=== PATIENT | male | born 1955 | race Caucasian/White ===

== ENCOUNTER 2022-04-08 14:24 | Observation (INO) | payer MEDICARE ==
[2022-04-08] MEDS ORDERED: Fentanyl 100 MCG/2 ML VIAL ONE ×3 (14:34→21:13)
[2022-04-08] MEDS ORDERED: metroNIDAZOLE 250 MG TAB ONE (14:35)
[2022-04-08] MEDS ORDERED: NOREPINEPHRINE 8 MG/250 ML-D5W 250 ML ONE (14:39)
[2022-04-08 14:40] LABS: #Lymphocytes 1.6 thou/uL (1.20-3.40); #Monocytes 0.7 thou/uL (0.11-0.59); #Neutrophils 3.5 thou/uL (1.40-6.50); %Eosinophils 0.4 % (0.0-10.0); %Lymphocytes 27.3 % (21.0-51.0); %Monocytes 12.4 % (0.0-10.0); %Neutrophils 59.9 % (42.0-75.0); Hemoglobin 12.6 g/dL (14.0-18.0); Mean Corpuscular HGB CONC 33.9 g/dL (32.0-36.0); Mean Corpuscular Hemoglobin 33.9 pg (27.0-31.0); Mean Platelet Volume 7.8 fL (7.4-10.4); Platelet Count 217 thou/uL (130-400); RBC Distribution Width 12.5 % (11.5-14.5); White Blood Cell (WBC) Count 5.9 thou/uL (4.8-10.8)
[2022-04-08 14:55] LABS: ALT (SGPT) 8 U/L (8-55); AST (SGOT) 17 U/L (5-34); Albumin 3.4 g/dL (3.4-4.8); Alkaline Phosphatase 53 U/L (40-110); Anion Gap 9 mmol/L (10-20); BUN (Urea Nitrogen) 20 mg/dL (8.4-25.7); Bilirubin, Total 0.4 mg/dL (0.2-1.2); Calc. Creatinine Clearance 0 mL/min (70-130); Calcium 8.5 mg/dL (7.8-10.44); Carbon Dioxide 21 mmol/L (23-31); Chloride 105 mmol/L (98-107); Estimated GFR 95; Globulin 2.4 g/dL (2.4-3.5); Glucose 125 mg/dL (80-115); Protein, Total 5.8 g/dL (5.8-8.1); Sodium 132 mmol/L (136-145)
[2022-04-08 15:00] LABS: Potassium 2.9 mmol/L (3.5-5.1)
[2022-04-08 15:06] LABS: INR-International Normal Ratio 1.2; Prothrombin Time 15.2 sec (12.0-14.7)
[2022-04-08 15:23] LABS: PTT 32.7 sec (22.9-36.1)
[2022-04-08] MEDS ORDERED: methylPREDNISolone Sod Succ/PF 125 MG/2 ML VIAL ONE (19:22)
[2022-04-08] MEDS ORDERED: Potassium Chloride 20 MEQ TAB ONE (19:22)
[2022-04-08] MEDS ORDERED: Ondansetron PF 4 MG/2 ML Vial IVP PRN (19:45)
[2022-04-08] MEDS ORDERED: Acetaminophen 325 MG TAB PO PRN (19:45)
[2022-04-08] MEDS ORDERED: Magnesium 2 GM/50 ML BAG (IN WATER) ONE (19:55)
[2022-04-08] MEDS ORDERED: Pregabalin 75 MG CAP PO SCH (21:00)
[2022-04-08] MEDS: guaiFENesin ER 600 MG TAB PO SCH (21:32)
[2022-04-08] MEDS: HYDROcodone/Acetaminophen 5/325 mg Tablet PO PRN (23:25)
[2022-04-08 23:35] VITALS: TEMP 97.9
[2022-04-09] MEDS ORDERED: Pregabalin 75 MG CAP PO SCH (00:15)
[2022-04-09 01:27] LABS: SARS-CoV-2 NAA Rapid Test Not Detected (NotDetected)
[2022-04-09] MEDS ORDERED: HYDROcodone/Acetaminophen 5/325 mg Tablet ONE ×2 (03:36→10:30)
[2022-04-09] MEDS: HYDROcodone/Acetaminophen 5/325 mg Tablet PO PRN ×2 (03:53→10:30)
[2022-04-09] MEDS ORDERED: methylPREDNISolone Sod Succ/PF 125 MG/2 ML VIAL ONE (04:40)
[2022-04-09] MEDS ORDERED: methylPREDNISolone Sod Succ 40 MG VIAL ONE (04:42)
[2022-04-09] MEDS ORDERED: methylPREDNISolone Sod Succ 40 MG VIAL IVP SCH (05:00)
[2022-04-09] MEDS ORDERED: Acetylcysteine 20% 200 MG/ML 30 ML VIAL INH SCH ×2 (05:15→15:00)
[2022-04-09 06:21] LABS: #Lymphocytes 0.4 thou/uL (1.20-3.40); #Monocytes 0.1 thou/uL (0.11-0.59); #Neutrophils 2.5 thou/uL (1.40-6.50); %Eosinophils 0.5 % (0.0-10.0); %Lymphocytes 13.7 % (21.0-51.0); %Monocytes 2.4 % (0.0-10.0); %Neutrophils 83.3 % (42.0-75.0); Hemoglobin 13.2 g/dL (14.0-18.0); Mean Corpuscular HGB CONC 33.1 g/dL (32.0-36.0); Mean Corpuscular Hemoglobin 33.3 pg (27.0-31.0); Mean Platelet Volume 7.8 fL (7.4-10.4); Platelet Count 199 thou/uL (130-400); RBC Distribution Width 12.5 % (11.5-14.5); Red Blood Cell (RBC) Count 3.98 mill/uL (4.70-6.10)
[2022-04-09] MEDS ORDERED: Budesonide 0.5 MG/2 ML NEB NEB SCH ×2 (06:30→18:30)
[2022-04-09 06:45] LABS: Chloride 105 mmol/L (98-107); Potassium 3.6 mmol/L (3.5-5.1); Sodium 132 mmol/L (136-145)
[2022-04-09 06:46] LABS: Glucose 194 mg/dL (80-115)
[2022-04-09 06:47] LABS: Carbon Dioxide 17 mmol/L (23-31)
[2022-04-09 06:49] LABS: Calc. Creatinine Clearance 0 mL/min (70-130); Estimated GFR 98
[2022-04-09 06:50] LABS: BUN (Urea Nitrogen) 13 mg/dL (8.4-25.7)
[2022-04-09 06:59] LABS: Anion Gap 14 mmol/L (10-20)
[2022-04-09] MEDS ORDERED: Rivaroxaban 10 MG TAB PO SCH (09:00)
[2022-04-09] MEDS: guaiFENesin ER 600 MG TAB PO SCH (09:48)
[2022-04-12 10:57] VITALS: BP 116/63
== END 2022-04-09 15:23 | disposition home or self-care (01) ==
LOC: ERS 14:24 → ERHOLD 19:45
PROVIDERS: ADMIT Internal Medicine; ATTEND Internal Medicine
DX: S22.42XA Multiple fractures of ribs, left side, initial encounter for closed fracture (principal); E78.5 Hyperlipidemia, unspecified; J45.20 Mild intermittent asthma, uncomplicated; E87.6 Hypokalemia; I77.9 Disorder of arteries and arterioles, unspecified; I95.9 Hypotension, unspecified; Z85.46 Personal history of malignant neoplasm of prostate; Z86.16 Personal history of COVID-19; Z86.718 Personal history of other venous thrombosis and embolism; Z79.01 Long term (current) use of anticoagulants; Z79.82 Long term (current) use of aspirin; Z79.899 Other long term (current) drug therapy; Z88.8 Allergy status to other drugs, medicaments and biological substances; Z89.511 Acquired absence of right leg below knee; Z95.820 Peripheral vascular angioplasty status with implants and grafts; Z20.822 Contact with and (suspected) exposure to COVID-19; V43.52XA Car driver injured in collision with other type car in traffic accident, initial encounter
CPT/HCPCS: 70450; 71045; 71275; 72125; 72191; 74174; 80048; 80053; 83605; 83735; 83880; 84484; 85025 ×2; 85610; 85730; 86850; 86900; 86901; 93005; 94640 ×3; 94760; 96365; 96375; 96376; 99285; U0002; 36415; 71260; 74177; G0390; J0132; J2920; J2930; J3010; J3475; J7620; J7626

== ENCOUNTER 2025-01-14 16:43 | Inpatient (IN) | payer MEDICARE ==
[2025-01-14] MEDS ORDERED: Ondansetron PF 4 MG/2 ML Vial ONE (17:14)
[2025-01-14 17:49] LABS: #Basophils Less than 0.03 10x3/uL (0.0-0.2); #Eosinophils Less than 0.03 10x3/uL (0.0-0.7); #Monocytes 1.09 10x3/uL (0.11-0.59); #Neutrophils 5.09 10x3/uL (1.40-6.50); %Basophils 0.3 % (0.0-1.0); %Eosinophils 0.0 % (0.0-10.0); %Lymphocytes 18.2 % (21.0-51.0); %Monocytes 14.2 % (0.0-10.0); %Neutrophils 66.5 % (42.0-75.0); Hematocrit 36.7 % (42.0-52.0); Hemoglobin 12.2 g/dL (14.0-18.0); Mean Corpuscular Hemoglobin 29.5 pg (27.0-31.0); Mean Corpuscular Volume 88.9 fL (78.0-98.0); Platelet Count 213 10x3/uL (130-400); Red Blood Cell (RBC) Count 4.13 mill/uL (4.70-6.10); White Blood Cell (WBC) Count 7.65 10x3/uL (4.8-10.8)
[2025-01-14 17:59] LABS: INR-International Normal Ratio 1.5; PTT 33.3 sec (22.9-36.1); Prothrombin Time 18.2 sec (12.0-14.7)
[2025-01-14 18:02] LABS: ALT (SGPT) 12 U/L (Less than 45); AST (SGOT) 21 U/L (11-34); Albumin 3.1 g/dL (3.1-4.5); Alkaline Phosphatase 75 U/L (40-110); Anion Gap 13 mmol/L (10-20); BUN (Urea Nitrogen) 23 mg/dL (8.4-25.7); Bilirubin, Total 0.8 mg/dL (0.3-1.2); Calc. Creatinine Clearance 0 mL/min (70-130); Calcium 8.1 mg/dL (7.8-10.44); Carbon Dioxide 19 mmol/L (23-31); Chloride 106 mmol/L (98-107); Globulin 2.8 g/dL (2.4-3.5); Glucose 88 mg/dL (83-110); Potassium 3.7 mmol/L (3.5-5.1); Sodium 134 mmol/L (136-145)
[2025-01-14] MEDS ORDERED: Acetaminophen 500 MG TAB ONE (19:43)
[2025-01-14] MEDS ORDERED: Glucagon 1 MG/ML KIT IM PRN (19:52)
[2025-01-14] MEDS ORDERED: Ondansetron PF 4 MG/2 ML Vial IVP PRN (19:52)
[2025-01-14] MEDS ORDERED: Dextrose 50% Abboject 50 ML SYRINGE SLOW IVP PRN (19:52)
[2025-01-15 00:07] VITALS: BMI 27.3
[2025-01-15 05:44] LABS: #Basophils Less than 0.03 10x3/uL (0.0-0.2); #Eosinophils Less than 0.03 10x3/uL (0.0-0.7); #Monocytes 1.09 10x3/uL (0.11-0.59); #Neutrophils 3.77 10x3/uL (1.40-6.50); %Basophils 0.3 % (0.0-1.0); %Eosinophils 0.0 % (0.0-10.0); %Lymphocytes 17.3 % (21.0-51.0); %Monocytes 18.4 % (0.0-10.0); %Neutrophils 63.5 % (42.0-75.0); Hematocrit 34.6 % (42.0-52.0); Hemoglobin 11.1 g/dL (14.0-18.0); Mean Corpuscular Hemoglobin 29.5 pg (27.0-31.0); Mean Corpuscular Volume 92.0 fL (78.0-98.0); Platelet Count 196 10x3/uL (130-400); Red Blood Cell (RBC) Count 3.76 mill/uL (4.70-6.10); White Blood Cell (WBC) Count 5.94 10x3/uL (4.8-10.8)
[2025-01-15 05:59] LABS: Anion Gap 11 mmol/L (10-20); BUN (Urea Nitrogen) 18 mg/dL (8.4-25.7); Calc. Creatinine Clearance 89 mL/min (70-130); Calcium 7.9 mg/dL (7.8-10.44); Carbon Dioxide 23 mmol/L (23-31); Chloride 102 mmol/L (98-107); Glucose 90 mg/dL (83-110); Potassium 3.9 mmol/L (3.5-5.1); Sodium 132 mmol/L (136-145)
[2025-01-15] MEDS: Pregabalin 50 MG CAP PO SCH (14:12)
[2025-01-15] MEDS ORDERED: CEFAZOLIN 2 GM VIAL ONE (14:23)
[2025-01-15] MEDS ORDERED: Ondansetron PF 4 MG/2 ML Vial ONE (15:32)
[2025-01-15] MEDS ORDERED: PROPOFOL 40 ML ONE (15:32)
[2025-01-15] MEDS ORDERED: fentaNYL PF 100 MCG/2 ML SYRINGE ONE (15:32)
[2025-01-15] MEDS ORDERED: Lidocaine 1% PF 5 ML VIAL ONE (15:32)
[2025-01-15] MEDS ORDERED: PHENYLEPHRINE-NS 100 MCG/ML 10 ML SYRINGE ONE ×2 (15:34→16:19)
[2025-01-15] MEDS ORDERED: Glycopyrrolate 0.2 MG/ML 5 ML SYRINGE ONE (16:05)
[2025-01-15] MEDS ORDERED: HYDROmorphone 0.5 MG/0.5 ML SYRINGE ONE ×2 (17:53→18:41)
[2025-01-15] MEDS ORDERED: Albuterol 200 PUFF (6.7GM INHALER) INH PRN (19:59)
[2025-01-15] MEDS: Rosuvastatin 20 MG TAB PO SCH (21:12)
[2025-01-16 06:52] LABS: #Basophils Less than 0.03 10x3/uL (0.0-0.2); #Eosinophils Less than 0.03 10x3/uL (0.0-0.7); #Monocytes 1.26 10x3/uL (0.11-0.59); #Neutrophils 8.34 10x3/uL (1.40-6.50); %Basophils 0.1 % (0.0-1.0); %Eosinophils 0.0 % (0.0-10.0); %Lymphocytes 6.6 % (21.0-51.0); %Monocytes 12.2 % (0.0-10.0); %Neutrophils 80.7 % (42.0-75.0); Hematocrit 32.0 % (42.0-52.0); Hemoglobin 10.5 g/dL (14.0-18.0); Mean Corpuscular Hemoglobin 29.7 pg (27.0-31.0); Mean Corpuscular Volume 90.4 fL (78.0-98.0); Platelet Count 199 10x3/uL (130-400); Red Blood Cell (RBC) Count 3.54 mill/uL (4.70-6.10); White Blood Cell (WBC) Count 10.33 10x3/uL (4.8-10.8)
[2025-01-16 07:06] LABS: Anion Gap 11 mmol/L (10-20); BUN (Urea Nitrogen) 14 mg/dL (8.4-25.7); Calc. Creatinine Clearance 92 mL/min (70-130); Calcium 7.7 mg/dL (7.8-10.44); Carbon Dioxide 22 mmol/L (23-31); Chloride 99 mmol/L (98-107); Glucose 129 mg/dL (83-110); Potassium 3.8 mmol/L (3.5-5.1); Sodium 128 mmol/L (136-145)
[2025-01-16] MEDS ORDERED: Ramipril 5 MG CAP PO SCH (09:00)
[2025-01-16] MEDS: Methocarbamol 500 MG TAB PO PRN (09:41)
[2025-01-16] MEDS: Senokot S 8.6-50 MG TAB PO SCH (21:16)
[2025-01-17 05:59] LABS: #Basophils Less than 0.03 10x3/uL (0.0-0.2); #Eosinophils Less than 0.03 10x3/uL (0.0-0.7); #Monocytes 1.22 10x3/uL (0.11-0.59); #Neutrophils 5.82 10x3/uL (1.40-6.50); %Basophils 0.1 % (0.0-1.0); %Eosinophils 0.0 % (0.0-10.0); %Lymphocytes 13.0 % (21.0-51.0); %Monocytes 15.0 % (0.0-10.0); %Neutrophils 71.5 % (42.0-75.0); Hematocrit 26.0 % (42.0-52.0); Hemoglobin 8.8 g/dL (14.0-18.0); Mean Corpuscular Hemoglobin 30.3 pg (27.0-31.0); Mean Corpuscular Volume 89.7 fL (78.0-98.0); Platelet Count 164 10x3/uL (130-400); Red Blood Cell (RBC) Count 2.90 mill/uL (4.70-6.10); White Blood Cell (WBC) Count 8.14 10x3/uL (4.8-10.8)
[2025-01-17 06:13] LABS: Anion Gap 8 mmol/L (10-20); BUN (Urea Nitrogen) 15 mg/dL (8.4-25.7); Calc. Creatinine Clearance 112 mL/min (70-130); Calcium 7.4 mg/dL (7.8-10.44); Carbon Dioxide 23 mmol/L (23-31); Chloride 102 mmol/L (98-107); Glucose 116 mg/dL (83-110); Potassium 3.4 mmol/L (3.5-5.1); Sodium 130 mmol/L (136-145)
[2025-01-17] MEDS: CALCIUM GLUC 1 GM/NS 50 ML 1 GM in Premix 1 BAG IVPB SCH (09:43)
[2025-01-17] MEDS: Ketorolac Tromethamine 30 MG (1 mL) VIAL IVP PRN (09:43)
[2025-01-17 11:33] VITALS: BP 92/54; TEMP 97.2
== END 2025-01-17 13:27 | DRG 481 ==
LOC: ERS 16:43 → SURG B 19:52
PROVIDERS: ADMIT Surgery; ATTEND Surgery
PROC: 0QS704Z Reposition Left Upper Femur with Internal Fixation Device, Open Approach (ICD-10-PCS; principal; 2025-01-15)
PROC: 3E03329 Introduction of Other Anti-infective into Peripheral Vein, Percutaneous Approach (ICD-10-PCS; 2025-01-15)
DX: S72.145A Nondisplaced intertrochanteric fracture of left femur, initial encounter for closed fracture (principal); E87.1 Hypo-osmolality and hyponatremia; I73.9 Peripheral vascular disease, unspecified; E78.5 Hyperlipidemia, unspecified; E78.00 Pure hypercholesterolemia, unspecified; J45.909 Unspecified asthma, uncomplicated; R79.1 Abnormal coagulation profile; W19.XXXA Unspecified fall, initial encounter; Z98.890 Other specified postprocedural states; Z90.49 Acquired absence of other specified parts of digestive tract; Z89.511 Acquired absence of right leg below knee; Z98.1 Arthrodesis status; Z88.8 Allergy status to other drugs, medicaments and biological substances; Z79.01 Long term (current) use of anticoagulants; Z79.82 Long term (current) use of aspirin; Z79.51 Long term (current) use of inhaled steroids; Z79.899 Other long term (current) drug therapy
CPT/HCPCS: 36415; 72170; 78452; 80048; 80053; 85025; 85610; 85730; 93005; 93017; 93306; 94640; 96374; 96375; 96376; A9502; C1713; J0613; J1100; J1171; J1885; J2270; J2272; J2405; J2704; J2785; J3010; J7620; J7626